=== PATIENT | female | born 1940 | race Caucasian/White ===

== ENCOUNTER 2017-05-22 21:21 | Inpatient (IN) | payer MEDICARE ==
[~2017-05-22] VITALS: Ht 149.9 cm; Wt 68.4 kg
[2017-05-22] MEDS ORDERED: SODIUM CHLORIDE 0.9% 1,000 ML IV ONE (21:29)
[2017-05-22] MEDS ORDERED: SODIUM CHLORIDE FLUSH 10ML SYR IVF ONE (21:30)
[2017-05-22 21:55] LABS: HEMATOCRIT 37.3 % (34.6-47.8); HEMOGLOBIN 12.2 g/dL (11.7-16.4); WHITE BLOOD COUNT 4.5 x10^3/uL (3.4-10)
[2017-05-22] MEDS ORDERED: PLEASE ENTER ALLERGIES MC SCH ×2 (22:00)
[2017-05-22] MEDS ORDERED: PLEASE ENTER HEIGHT AND WEIGHT MC SCH (22:00)
[2017-05-22 22:08] LABS: ASPARTATE AMINO TRANSFERASE 13 U/L (15-37); BLOOD UREA NITROGEN 21 mg/dL (7-18)
[2017-05-22 22:13] LABS: IS PT STATUS REG ER OR PRE ER? YES
[2017-05-22] MEDS ORDERED: CEFTRIAXONE PMX 1GM/50ML 50 ML IVPB ONE (22:30)
[2017-05-22] MEDS ORDERED: AZITHROMYCIN 500 MG in SODIUM CHLORIDE 0.9% 250 ML IVPB ONE (22:30)
[2017-05-22] MEDS ORDERED: SODIUM CHLORIDE 0.9% 1,000ML IVBOLUS ONE (22:30)
[2017-05-22] MEDS ORDERED: DIGO125T PO (22:50)
[2017-05-22] MEDS ORDERED: LOSA100T6 PO ×2 (22:50→22:54)
[2017-05-22] MEDS ORDERED: VERA240T86 PO (22:54)
[2017-05-22] MEDS ORDERED: POTA10CA PO (22:54)
[2017-05-22] MEDS ORDERED: LEVO112T4 PO (22:54)
[2017-05-22] MEDS ORDERED: CEFTRIAXONE PMX 1GM/50ML 50 ML ONE (23:03)
[2017-05-22] MEDS ORDERED: BISACODYL 10 MG SUPP PR PRN (23:30)
[2017-05-22] MEDS ORDERED: ACETAMINOPHEN 325 MG TABLET PO PRN (23:30)
[2017-05-22] MEDS ORDERED: PROMETHAZINE 25 MG/ML, 1ML IM PRN (23:30)
[2017-05-22] MEDS ORDERED: ONDANSETRON 2MG/ML, 2ML IVPush PRN (23:30)
[2017-05-22] MEDS ORDERED: POLYETHYLENE GLYCOL 17 GM PACKET PO PRN (23:30)
[2017-05-22] MEDS ORDERED: TEMPLATE NON-FORMULARY MED. (Losartan Potassium** 100 MG) PO SCH (23:30)
[2017-05-22] MEDS: CEFTRIAXONE PMX 1GM/50ML 50 ML IV SCH (23:30)
[2017-05-22] MEDS ORDERED: DOCUSATE 100 MG CAPSULE PO PRN (23:30)
[2017-05-22] MEDS ORDERED: GUAIFENESIN/DM 200-20MG, 10ML UDC PO PRN (23:30)
[2017-05-22] MEDS: LOSARTAN MC SCH ×2 (23:45)
[2017-05-23] VITALS (7 sets, daily range): BP systolic 96–191; BP diastolic 60–119
[2017-05-23] MEDS: AZITHROMYCIN 500 MG in SODIUM CHLORIDE 0.9% 250 ML IV SCH ×2 (00:40→00:43)
[2017-05-23] MEDS: DABIGATRAN 75 MG CAPSULE PO SCH ×3 (00:43→21:52)
[2017-05-23] MEDS: SODIUM CHLORIDE 0.9% 1,000 ML IV SCH ×3 (00:44→20:30)
[2017-05-23 05:49] LABS: BLOOD UREA NITROGEN 19 mg/dL (7-18)
[2017-05-23 07:35] LABS: HEMATOCRIT 33.2 % (34.6-47.8); WHITE BLOOD COUNT 4.2 x10^3/uL (3.4-10)
[2017-05-23] MEDS: LOSARTAN MC SCH ×2 (07:45)
[2017-05-23 07:56] LABS: DIFF TOTAL CELLS COUNTED 100 CELL DIFF
[2017-05-23] MEDS: VERAPAMIL ER 180MG TABLET.ER PO SCH (08:03)
[2017-05-23] MEDS: DIGOXIN 0.125 MG TABLET PO SCH (08:03)
[2017-05-23] MEDS: LEVOTHYROXINE 112 MCG TABLET PO SCH (08:03)
[2017-05-23] MEDS: THIAMINE 100MG TABLET PO SCH (08:03)
[2017-05-23 08:13] LABS: ANISOCYTOSIS 1+; VERIFY COUNTS? YES
[2017-05-23] MEDS: metroNIDAZOLE 500 MG TABLET PO SCH (18:18)
[2017-05-23] MEDS: CEFTRIAXONE PMX 1GM/50ML 50 ML IV SCH (23:50)
[2017-05-24 01:45] VITALS: BP 162/92
[2017-05-24 05:10] LABS: HEMOGLOBIN 10.8 g/dL (11.7-16.4); WHITE BLOOD COUNT 5.3 x10^3/uL (3.4-10)
[2017-05-24 05:23] LABS: BLOOD UREA NITROGEN 17 mg/dL (7-18)
[2017-05-24 07:11] VITALS: BP 139/84
[2017-05-24 07:35] VITALS: BP 135/91
[2017-05-24 07:40] VITALS: BP 177/100
[2017-05-24] MEDS: metroNIDAZOLE 500 MG TABLET PO SCH ×2 (09:00)
[2017-05-24] MEDS ORDERED: LOSARTAN 50MG TABLET PO SCH (09:00)
[2017-05-24] MEDS: DIGOXIN 0.125 MG TABLET PO SCH (09:01)
[2017-05-24] MEDS: DABIGATRAN 75 MG CAPSULE PO SCH (09:01)
[2017-05-24] MEDS: THIAMINE 100MG TABLET PO SCH (09:01)
[2017-05-24] MEDS: VERAPAMIL ER 180MG TABLET.ER PO SCH (09:01)
[2017-05-24] MEDS: LEVOTHYROXINE 112 MCG TABLET PO SCH (09:07)
[2017-05-24] MEDS: SODIUM CHLORIDE 0.9% 1,000 ML IV SCH (11:01)
[2017-05-24 12:44] VITALS: BP 126/76
[2017-05-24] MEDS ORDERED: DOXY100T PO (14:25)
[2017-05-24] MEDS ORDERED: METR500T PO (14:25)
[2017-05-24] MEDS ORDERED: CEFD300C37 PO (14:25)
[2017-05-24] MEDS ORDERED: CALC200T24 PO (14:25)
[2017-05-24] MEDS ORDERED: DABI75CA3 PO (14:27)
[2017-05-24] MEDS ORDERED: CALCIUM CARBONATE 500 MG TAB.CHEW PO SCH (16:00)
[2017-05-24] MEDS ORDERED: DOXYCYCLINE 100MG TABLET PO SCH (21:00)
[2017-05-24] MEDS ORDERED: CEFDINIR 300 MG CAPSULE PO SCH (21:00)
== END 2017-05-24 16:00 | disposition home health service (06) | DRG 189 ==
LOC: ED 22:15 → EDIP 22:16 → SUATTDRO 22:30 → 4WST 23:47 → DCLOUNGE 05-24 15:33
DX: J96.01 Acute respiratory failure with hypoxia (principal); N17.0 Acute kidney failure with tubular necrosis; J15.9 Unspecified bacterial pneumonia; E44.0 Moderate protein-calorie malnutrition; D68.59 Other primary thrombophilia; I11.0 Hypertensive heart disease with heart failure; E83.51 Hypocalcemia; I50.32 Chronic diastolic (congestive) heart failure; D69.6 Thrombocytopenia, unspecified; D53.9 Nutritional anemia, unspecified; D75.89 Other specified diseases of blood and blood-forming organs; D72.820 Lymphocytosis (symptomatic); E03.9 Hypothyroidism, unspecified; F10.120 Alcohol abuse with intoxication, uncomplicated; I48.2 Chronic atrial fibrillation; M81.0 Age-related osteoporosis without current pathological fracture; Y90.7 Blood alcohol level of 200-239 mg/100 ml; G90.8 Other disorders of autonomic nervous system; I08.3 Combined rheumatic disorders of mitral, aortic and tricuspid valves; Z66 Do not resuscitate; Z86.73 Personal history of transient ischemic attack (TIA), and cerebral infarction without residual deficits; Z90.89 Acquired absence of other organs; Z68.30 Body mass index [BMI] 30.0-30.9, adult; Z80.9 Family history of malignant neoplasm, unspecified; Z88.5 Allergy status to narcotic agent
CPT/HCPCS: 36415; 70450; 71010; 80048; 80053; 80162; 80307; 81001; 82140; 82306; 82330; 82607; 82746; 83735; 84100; 84443; 84484; 85025; 85610; 85730; 87040; 87086; 93005; 93306; 99285; J0456; J0696; J7030; J7050